=== PATIENT | male | born 1990 | race Caucasian/White ===

== ENCOUNTER 2016-07-19 11:26 | Emergency (ER) | payer OTHER ==
[~2016-07-19] VITALS: Ht 180.3 cm; Wt 110.0 kg
[~2016-07-19 11:26] MED LIST: AMOX875T20 PO; TRAM50 PO
[2016-07-19 11:28] VITALS: BP 135/86; PULSE 92; RESP 16; TEMP 97.7; O2SAT 99
[2016-07-19] MEDS ORDERED: BACT800T5 PO (11:52)
[2016-07-19] MEDS ORDERED: CEPH-460 PO (11:52)
--- NOTE | 2016-07-19 11:57 | PD ---
HPI Chief Complaint: Skin Problem Time Seen by Provider: 11:53 Travel History International Travel<30 days: No Contact w/Intl Traveler<30days: No Traveled to known affect area: No History of Present Illness HPI 26-year-old male that presents to the ED for evaluation of left forearm infection. 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 He states that he initially lost some hairs and it and I didn't think much of it but for the past 2 days his been having redness and swelling coming in the area. Per patient he was concerned for infection. He has no history of MRSA or IV drug abuse. He denies any history of any suppression. Per patient is up-to-date with his tetanus. Per patient the pain is 6-8 out of 10 on that area only with touch. Per patient is warm to touch. He denies putting anything on it. He denies any wound care. Per patient the redness was getting more swelling and more noticeable today which is what prompted his evaluation here today. Nothing seems to make the symptoms better. Touching makes it worse. PFSH Past Medical History Cancer: No Glaucoma: No Hepatitis: No Hiatal Hernia: No Hypertension: No Immunizations Current: Yes Seizures: Yes (WHEN HE WAS BETWEEN 3-8 YEARS OF AGE WHEN THEY OCCURED) Thyroid Disease: No Past Surgical History Abdominal Surgery: No Cardiac Surgery: No Ear Surgery: No Endocrine Surgery: No Eye Surgery: Yes (LEFT LENS TRANSPLANT) Genitourinary Surgery: No Gynecologic Surgery: No Oral Surgery: No Pacemaker: No Thoracic Surgery: No Other Surgery: Yes (NASAL SURGERY) Social History Alcohol Use: No Tobacco Use: Yes (1 PPD) Substance Use: No Allergies-Medications (Allergen,Severity, Reaction): Coded Allergies: No Known Allergies (Unverified , 12/03/12) Reported Meds & Prescriptions Reported Meds & Active Scripts Active Keflex (Cephalexin) 500 Mg Cap 500 Mg PO Q8H 10 Days Bactrim DS (Sulfamethoxazole-Trimethoprim) 800-160 Mg Tab 1 Tab PO BID 10 Days Ultram (Tramadol HCl) 50 Mg Tab 1 Tab PO Q4HPRN FOR PAIN Amoxicillin/Clavulanate P (Amoxicillin/Clavulanate Potassium) 875 Mg Tab 875 Mg PO BID 10 Days Review of Systems General / Constitutional: No: Fever, Chills, Weight Gain, Weight Loss, Other Eyes: No: Diploplia, Blurred Vision, Photophobia, Drainage, Redness, Foreign Body Sensation, Pain, Tearing, Blind Spots, Visual changes, Blindness, Other HENT: No: Headaches, Vertigo, Lightheadedness, Sore Throat, Rhinitis, Rhinorrhea, Congestion, Nosebleed, Neck Stiffness, Neck Pain, Masses, Gingival Bleeding, Dental Difficulties, Ear Discharge, Earache, Other Cardiovascular: No: Chest Pain or Discomfort, Palpitations, Irregular Rhythm, Tachycardia, Diaphoresis, Syncope, Dyspnea on exertion, Varicosities, Edema, Cyanosis, Varicosities, Phlebitis, Claudication, Other Respiratory: No: Cough, Shortness of Breath, Wheezing, Sneezing, Orthopnea, Hemoptysis, Stridor, Night Sweats, Pleuritic Pain, Other Gastrointestinal: No: Nausea, Vomiting, Diarrhea, Abdominal Pain, Hematemesis, Hematochezia, Constipation, Changes in Bowel Habits, Indigestion, Dysphagia, Loss of Appetite, Other Genitourinary: No: Urgency, Frequency, Dysuria, Nocturia, Hematuria, Decreased Urinary Output, Oliguria, Hesitancy, Dribbling, Incontinence, Pelvic Pain, Flank Pain, Dyspareunia, Discharge, Dysmenorrhea, Menorrhagia, Metorrhagia, Vaginal Bleeding, Other Musculoskeletal: No: Myalgias, Arthralgias, Limited ROM, Weakness, Cramping, Edema, Pain, Atrophy, Other Skin: Positive Rash, No Itching, No Dryness, No Lumps, No Hives, No Change in Pigmentation, No Change in nails, No Alopecia, No Lesions, No Breast Lumps, No Breast Tenderness, No Breast Swelling, No Other Neurologic: No: Weakness, Dizziness, Syncope, Focal Abnormalities, Coordination Problem, Tremor, Ataxia, Headache, Change in Mentation, Slurred Speech, Paresthesia, Incontinence, Seizures, Sensory Disturbance, Other Psychiatric: No: Anxiety, Depression, Suicidal Ideations, Disorder of Thought, Mood Disorder, Substance Abuse, Homicidal Ideation, Other Endocrine: No: Heat Intolerance, Cold Intolerance, Polyuria, Polydipsia, Other Hematologic/Lymphatic: No: Easy Bruising, Lymph Node Enlargement, Other Physical Exam Narrative GENERAL: SKIN: Warm and dry. Patient has an area of erythema that is about 1 cm in diameter with some tracking towards the proximal aspect of the elbow. Blanchable but warm. No obvious purulence or mass. Mild induration noted. Full range of motion of the entire extremity. No lymphadenopathy noted. HEAD: Atraumatic. Normocephalic. EYES: Pupils equal and round. No scleral icterus. No injection or drainage. ENT: No nasal bleeding or discharge. Mucous membranes pink and moist. Tongue is midline. No uvula deviation. NECK: Trachea midline. No JVD. CARDIOVASCULAR: Regular rate and rhythm. RESPIRATORY: No accessory muscle use. Clear to auscultation. Breath sounds equal bilaterally. GASTROINTESTINAL: Abdomen soft, non-tender, nondistended. Hepatic and splenic margins not palpable. MUSCULOSKELETAL: Extremities without clubbing, cyanosis, or edema. No obvious deformities. Full range of motion of the upper and lower extremities bilaterally. 2+ pulses bilaterally. NEUROLOGICAL: Awake and alert. No obvious cranial nerve deficits. Motor grossly within normal limits. Five out of 5 muscle strength in the arms and legs. Normal speech. PSYCHIATRIC: Appropriate mood and affect; insight and judgment normal. Data Data Last Documented VS Vital Signs Date Time Temp Pulse Resp B/P Pulse Ox O2 Delivery O2 Flow Rate FiO2 07/19/16 11:28 97.7 92 16 135/86 99 Room Air MDM Medical Decision Making Medical Screen Exam Complete: Yes Emergency Medical Condition: Yes Medical Record Reviewed: Yes Differential Diagnosis Abscesses versus cellulitis versus first degrees burn Narrative Course 26-year-old male that presents to the ED for evaluation of possible infection. Patient was properly examined and was found to have signs and symptoms consistent appears to be left forearm cellulitis. No sign of abscess at this time. At this time I recommend treating with Bactrim and Keflex. Follow with PCP. Motrin or Tylenol for pain. Ice or warm compresses. See ED for any worsening symptoms. Patient is agreeable with plan. Diagnosis Primary Impression: Cellulitis Qualified Code: L03.114 - Cellulitis of left upper extremity Patient Instructions: General Instructions Additional Instructions: Take medications as prescribed. Motrin or Advil as needed for pain. Ice or warm compresses. See ED for any worsening symptoms. Med/Other Pt SpecificInfo: Prescription(s) given Scripts Cephalexin (Keflex)500 Mg [id number] Mg PO Q8H 10 Days Ref 0 Prov:Chandrika Davis MD 07/19/16 Sulfamethoxazole-Trimethoprim (Bactrim DS)800-160 Mg Tab1 Tab PO BID 10 Days Ref 0 Prov:Chandrika Davis MD 07/19/16 Disposition: 01 DISCHARGE HOME Condition: Stable Jak Khan Jul 19, 2016 11:57
== END 2016-07-19 12:28 | disposition home or self-care (01) ==
LOC: NEPB 11:26
DX: L03.114 Cellulitis of left upper limb (principal); X08.8XXA Exposure to other specified smoke, fire and flames, initial encounter; Y93.G3 Activity, cooking and baking; Y92.511 Restaurant or cafe as the place of occurrence of the external cause; Y99.0 Civilian activity done for income or pay; F17.210 Nicotine dependence, cigarettes, uncomplicated
CPT/HCPCS: 99283

== ENCOUNTER 2016-07-20 14:36 | Emergency (ER) | payer OTHER ==
[~2016-07-20] VITALS: Ht 177.8 cm; Wt 109.0 kg
[~2016-07-20 14:36] MED LIST changes: +BACT800T5 PO; +CEPH-460 PO
[2016-07-20 14:38] VITALS: BP 128/78; PULSE 65; RESP 14; TEMP 98; O2SAT 99
[2016-07-20] MEDS ORDERED: LIDOCAINE 1%/EPINEPHrine 1:100,000 SOLN 20 ML VIAL INFIL ONE (15:45)
--- NOTE | 2016-07-20 16:24 | PD ---
HPI Chief Complaint: Skin Problem Time Seen by Provider: 15:35 Travel History International Travel<30 days: No Contact w/Intl Traveler<30days: No Traveled to known affect area: No History of Present Illness HPI 26-year-old male presents to the department with ongoing cellulitis and abscess to the left volar distal forearm. Patient was seen yesterday and placed on antibiotics. Patient states his overall erythema is improved, but the swelling is gotten more pronounced, but no spontaneous drainage is noted. He states the pain is worse today. He has no known drug allergies. PFSH Past Medical History Cancer: No Glaucoma: No Hepatitis: No Hiatal Hernia: No Hypertension: No Immunizations Current: Yes Seizures: Yes (WHEN HE WAS BETWEEN 3-8 YEARS OF AGE WHEN THEY OCCURED) Thyroid Disease: No Past Surgical History Abdominal Surgery: No Cardiac Surgery: No Ear Surgery: No Endocrine Surgery: No Eye Surgery: Yes (LEFT LENS TRANSPLANT) Genitourinary Surgery: No Gynecologic Surgery: No Oral Surgery: No Pacemaker: No Thoracic Surgery: No Other Surgery: Yes (NASAL SURGERY) Social History Alcohol Use: No Tobacco Use: Yes (1 PPD) Substance Use: No Allergies-Medications (Allergen,Severity, Reaction): Coded Allergies: No Known Allergies (Unverified , 07/20/16) Reported Meds & Prescriptions Reported Meds & Active Scripts Active Keflex (Cephalexin) 500 Mg Cap 500 Mg PO Q8H 10 Days Bactrim DS (Sulfamethoxazole-Trimethoprim) 800-160 Mg Tab 1 Tab PO BID 10 Days Review of Systems Except as stated in HPI: all other systems reviewed are Neg General / Constitutional: No: Fever Eyes: No: Visual changes HENT: No: Headaches Cardiovascular: No: Chest Pain or Discomfort Respiratory: No: Shortness of Breath Gastrointestinal: No: Abdominal Pain Genitourinary: No: Dysuria Musculoskeletal: No: Pain Skin: Positive Lesions (see history present illness.), No Rash Neurologic: No: Weakness Psychiatric: No: Depression Endocrine: No: Polydipsia Hematologic/Lymphatic: No: Easy Bruising Physical Exam Narrative GENERAL: Patient is in no acute distress. SKIN: Warm and dry. Normal color. Normal turgor. Patient has an obvious abscess to the left volar distal forearm on the ulnar aspect. There is no spontaneous drainage. Erythema is localized without lymphangitis or streaking. Abscess measures 4 cm x 2 cm. HEAD: Atraumatic. Normocephalic. EYES: Pupils equal and round. No scleral icterus. No injection or drainage. ENT: No nasal bleeding or discharge. Mucous membranes pink and moist. Pharynx is clear. NECK: Trachea midline. No JVD. CARDIOVASCULAR: Regular rate and rhythm. RESPIRATORY: No accessory muscle use. Clear to auscultation. Breath sounds equal bilaterally. MUSCULOSKELETAL: Extremities without clubbing, cyanosis, or edema. No obvious deformities. NEUROLOGICAL: Awake and alert. No obvious cranial nerve deficits. Motor grossly within normal limits. Five out of 5 muscle strength in the arms and legs. Normal speech. PSYCHIATRIC: Appropriate mood and affect; insight and judgment normal. Data Data Last Documented VS Vital Signs Date Time Temp Pulse Resp B/P Pulse Ox O2 Delivery O2 Flow Rate FiO2 07/20/16 14:38 98.0 65 14 128/78 99 Orders Lidocai-Epi 1%-1:100,000 Inj (Xylocaine- (07/20/16 15:45) MDM Medical Decision Making Medical Screen Exam Complete: Yes Emergency Medical Condition: Yes Differential Diagnosis Cellulitis. MRSA. Abscess. Narrative Course Patient is medically stable at time of exam. I&D of abscess is performed on the left arm. See procedure note. Wound culture is pending. Patient is continue the antibiotics as previously prescribed. Patient is to follow-up in 2 days for wound check and packing removal. Dressing should remain in place until that time. Patient can return sooner if symptoms warrant. Procedures Procedure Narrative After the risks and benefits were discussed the following procedure was performed: INCISION AND DRAINAGE OF ABSCESS: The area was prepped and was sterilely draped. A subcutaneous wheal of 1 % Xylocaine with epi with a total number 3 mL was used to anesthetize the area. The area was properly anesthetized. A number 11 scalpel was used to make a 1-cm incision across the area of the abscess. Cultures were obtained. The abscess was drained an irrigated with normal saline. Quarter inch iodoform packing was placed in the wound. Sterile dressing applied. Patient advised to have packing removed in two days. Diagnosis Primary Impression: Abscess of left arm Patient Instructions: Abscess Incision and Drainage (ED), General Instructions Additional Instructions: I&D of abscess is performed on the left arm. Wound culture is pending. Patient is continue the antibiotics as previously prescribed. Patient is to follow-up in 2 days for wound check and packing removal. Dressing should remain in place until that time. Patient can return sooner if symptoms warrant. Med/Other Pt SpecificInfo: No Change to Meds, Wound Care Disposition: 01 DISCHARGE HOME Condition: Stable Berry Kathleen Jul 20, 2016 16:24
== END 2016-07-20 16:45 | disposition home or self-care (01) ==
LOC: NEPB 14:36
DX: L02.414 Cutaneous abscess of left upper limb (principal); B95.61 Methicillin susceptible Staphylococcus aureus infection as the cause of diseases classified elsewhere; F17.200 Nicotine dependence, unspecified, uncomplicated
CPT/HCPCS: 10061; 86403; 87070; 87186

== ENCOUNTER 2016-07-22 12:26 | Emergency (ER) | payer OTHER ==
[~2016-07-22] VITALS: Ht 177.8 cm; Wt 110.0 kg
[~2016-07-22 12:26] MED LIST changes: -AMOX875T20 PO; -TRAM50 PO
[2016-07-22 12:28] VITALS: BP 137/74; PULSE 93; RESP 14; TEMP 98; O2SAT 98
--- NOTE | 2016-07-22 13:58 | PD ---
HPI Chief Complaint: Skin Problem Time Seen by Provider: 13:56 Travel History International Travel<30 days: No Contact w/Intl Traveler<30days: No Traveled to known affect area: No History of Present Illness HPI 26-year-old male presents to the emergency department requesting removal of the packing from his abscess to his left forearm that was placed 2 days ago. He has been taking his antibiotics as prescribed. He is taking Bactrim and Keflex. He has not checked the wound area because he has not change the dressing since the abscess was incised and drained. Denies fever, chills, nausea, vomiting. Denies paresthesias, loss of sensation, decreased range motion, decreased strength to the affected area. Has no other medical complaints. No known allergies. No other modifying factors or associated signs and symptoms. PFSH Past Medical History Cancer: No Glaucoma: No Hepatitis: No Hiatal Hernia: No Hypertension: No Immunizations Current: Yes Seizures: Yes (WHEN HE WAS BETWEEN 3-8 YEARS OF AGE WHEN THEY OCCURED) Thyroid Disease: No Past Surgical History Abdominal Surgery: No Cardiac Surgery: No Ear Surgery: No Endocrine Surgery: No Eye Surgery: Yes (LEFT LENS TRANSPLANT) Genitourinary Surgery: No Gynecologic Surgery: No Oral Surgery: No Pacemaker: No Thoracic Surgery: No Other Surgery: Yes (NASAL SURGERY) Social History Alcohol Use: No Tobacco Use: Yes (1 PPD) Substance Use: No Allergies-Medications (Allergen,Severity, Reaction): Coded Allergies: No Known Allergies (Unverified , 07/22/16) Reported Meds & Prescriptions Reported Meds & Active Scripts Active Keflex (Cephalexin) 500 Mg Cap 500 Mg PO Q8H 10 Days Bactrim DS (Sulfamethoxazole-Trimethoprim) 800-160 Mg Tab 1 Tab PO BID 10 Days Review of Systems Except as stated in HPI: all other systems reviewed are Neg Physical Exam Narrative GENERAL: Well-nourished, well-developed patient, in no acute distress; afebrile , nontoxic-appearing SKIN: There is an indurated area to the anterior left forearm with iodoform packing in place; abscesses status post incision and drainage; packing removed;. Drainage noted. There is a zone of inflammation around it but no lymphangitis. Sterile dressing applied. HEAD: Atraumatic. Normocephalic. EYES: Pupils equal and round. No scleral icterus. No injection or drainage. ENT: Mucosa pink and moist. Airway patent. NECK: Trachea midline. CARDIOVASCULAR: Regular rate. RESPIRATORY: No accessory muscle use. GASTROINTESTINAL: Rounded. MUSCULOSKELETAL: No obvious deformities. No clubbing. No cyanosis. No edema. NEUROLOGICAL: Awake and alert. Oriented 3. No obvious cranial nerve deficits. Motor grossly within normal limits. Normal speech. PSYCHIATRIC: Appropriate mood and affect; insight and judgment normal. Data Data Last Documented VS Vital Signs Date Time Temp Pulse Resp B/P Pulse Ox O2 Delivery O2 Flow Rate FiO2 07/22/16 13:54 18 07/22/16 12:28 98.0 93 137/74 98 Room Air MDM Medical Decision Making Medical Screen Exam Complete: Yes Emergency Medical Condition: Yes Medical Record Reviewed: Yes Differential Diagnosis Wound recheck, abscess packing removal, medical clearance Narrative Course 26-year-old male presents for packing removal of an abscess to his left forearm. Patient is afebrile and nontoxic-appearing. He is taking Keflex and Bactrim as prescribed. Packing removed. Sterile dressing applied. Instructed patient to continue antibiotics until they are gone. Patient verbalizes understanding and agreement with treatment plan. Patient is medically cleared and stable for discharge. Discussed reasons to return to the emergency department. Instructed patient to follow up with primary care provider. Patient agrees with treatment plan. The patients vital signs are stable and the patient is stable for outpatient follow-up and treatment. Patient discharged home, stable and in no acute distress. Diagnosis Primary Impression: Encounter for abscess packing removal Referrals: Primary Care Physician Patient Instructions: Abscess Follow-up (ED), General Instructions Departure Forms: Tests/Procedures, Work Release Enter return to work date: Jul 22, 2016 Additional Instructions: Complete full course of antibiotics Warm compresses to the affected area Keep area clean and dry Ibuprofen or Tylenol as directed 90 for pain and inflammation Follow-up with primary care provider Return to emergency department immediately with worsening of symptoms Med/Other Pt SpecificInfo: No Change to Meds, No Meds Exist/No RX given Disposition: 01 DISCHARGE HOME Condition: Stable Jennifer Lawson Jul 22, 2016 13:58
== END 2016-07-22 14:17 | disposition home or self-care (01) ==
LOC: NETRI 12:26
DX: L02.414 Cutaneous abscess of left upper limb (principal); F17.200 Nicotine dependence, unspecified, uncomplicated
CPT/HCPCS: 99281

== ENCOUNTER 2017-03-21 17:47 | Emergency (ER) | payer OTHER ==
[~2017-03-21] VITALS: Ht 180.3 cm; Wt 109.0 kg
[2017-03-21 17:48] VITALS: BP 149/92; PULSE 83; RESP 12; TEMP 97.9; O2SAT 100
--- NOTE | 2017-03-21 21:28 | PD ---
HPI Chief Complaint: Back/ Neck Pain or Injury Time Seen by Provider: 21:16 Travel History International Travel<30 days: No Contact w/Intl Traveler<30days: No Traveled to known affect area: No History of Present Illness HPI 26-year-old male here for evaluation of lower back pain. The patient reports that the pain started about 3 days ago after coughing all smoking a cigarette. States the pain has been persistent, occasionally radiates down his bilateral legs. States that yesterday he had some numbness in his bilateral feet. Currently no numbness. No urinary or bowel incontinence or retention. No direct trauma. No saddle anesthesia. 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 He denies fevers or chills. No history of IVDU or illicit drug use. PFSH Past Medical History Cancer: No Glaucoma: No Hepatitis: No Hiatal Hernia: No Hypertension: No Immunizations Current: Yes Seizures: Yes (WHEN HE WAS BETWEEN 3-8 YEARS OF AGE WHEN THEY OCCURED) Thyroid Disease: No Past Surgical History Abdominal Surgery: No Cardiac Surgery: No Ear Surgery: No Endocrine Surgery: No Eye Surgery: Yes (LEFT LENS TRANSPLANT) Genitourinary Surgery: No Gynecologic Surgery: No Oral Surgery: No Pacemaker: No Thoracic Surgery: No Other Surgery: Yes (NASAL SURGERY) Social History Alcohol Use: No Tobacco Use: Yes (1 PPD) Substance Use: No Allergies-Medications (Allergen,Severity, Reaction): Coded Allergies: No Known Allergies (Unverified Adverse Reaction, Unknown, 03/21/17) Reported Meds & Prescriptions Reported Meds & Active Scripts Active No Active Prescriptions or Reported Medications Review of Systems Except as stated in HPI: all other systems reviewed are Neg Physical Exam Narrative GENERAL: Well-developed, well-nourished, overweight, sitting comfortably on stretcher, no apparent distress. SKIN: Focused skin assessment warm/dry. No rash. HEAD: Atraumatic. Normocephalic. EYES: Pupils equal and round. No scleral icterus. No injection or drainage. ENT: Mucous membranes pink and moist. NECK: Trachea midline. No JVD. CARDIOVASCULAR: Regular rate and rhythm. Bilateral posterior tibialis pulses are brisk and equal. RESPIRATORY: No accessory muscle use. Clear to auscultation. Breath sounds equal bilaterally. GASTROINTESTINAL: Abdomen soft, non-tender, nondistended. MUSCULOSKELETAL: No obvious deformities. No clubbing. No cyanosis. No edema. Normal range of motion in bilateral lower extremities in flexion and extension with normal strength in flexion and extension at the knee, hip, and ankle joints. Mild midline thoracic spine and lumbar spine tenderness without step- off with moderate paraspinal lower lumbar spine tenderness. No CVA tenderness. NEUROLOGICAL: Awake and alert. No obvious cranial nerve deficits. Motor grossly within normal limits. Normal speech. Great toe extension present bilaterally. Brisk patellar tendon reflexes bilaterally. Normal motor/sensory to bilateral lower extremities. No saddle anesthesia. PSYCHIATRIC: Appropriate mood and affect; insight and judgment normal. Data Data Last Documented VS Vital Signs Date Time Temp Pulse Resp B/P (MAP) Pulse Ox O2 Delivery O2 Flow Rate FiO2 03/21/17 17:48 97.9 83 12 149/92 (111) 100 Orders Orders Spine, Thoracic-Ap/Lat/Sw(3vw) (03/21/17 ) Spine, Lumbar Comp W/Obliq (03/21/17 ) Ketorolac Inj (Toradol Inj) (03/21/17 21:30) Cyclobenzaprine (Flexeril) (03/21/17 21:30) Prednisone (Deltasone) (03/21/17 21:30) MDM Medical Decision Making Medical Screen Exam Complete: Yes Emergency Medical Condition: Yes Differential Diagnosis Low back strain, vertebral injury, herniated disc, spinal stenosis/cord compression unlikely Narrative Course Vital signs show heart rate 83, blood pressure 149/92, pulse ox 100% on room air , oral temp of 97.9F. T-spine x-ray: No acute abnormality. L-spine x-ray: No significant lumbar spine abnormality is identified. The patient was made aware of all findings. He was given a dose of IM Toradol, oral Flexeril, and oral prednisone. He is not displaying any red flags for low back pain. He is stable for discharge home with further workup as an outpatient. I will give her a prescription for prednisone and a muscle relaxant. He was informed on when to return to the emergency department. He verbalizes understanding and agreement with plan. Diagnosis Primary Impression: Back strain Qualified Codes: S39.012A - Strain of muscle, fascia and tendon of lower back , initial encounter Referrals: [facility] 3 days Primary Care Physician 3 days Additional Instructions: Follow-up with a primary care physician this week. Return to the emergency department for worsening symptoms or any other concerns. Scripts Prednisone (Prednisone) 50 Mg Tab 50 MG PO DAILY for 5 Days, #5 TAB 0 Refills Prov: Angel Felton MD 03/21/17 Hydrocodone-Acetaminophen (Hydrocodone-Acetaminophen) 5-325 mg Tab 1 TAB PO Q6H Y for PAIN, #12 TAB 0 Refills Prov: Angel Felton MD 03/21/17 Cyclobenzaprine (Flexeril) 10 Mg Tab 10 MG PO TID for Muscle Spasm, #12 TAB 0 Refills Prov: Angel Felton MD 03/21/17 Disposition: 01 DISCHARGE HOME Condition: Stable Angel Felton MD Mar 21, 2017 21:28
[2017-03-21] MEDS ORDERED: CYCLOBENZAPRINE HCL 10 MG TAB PO ONE (21:30)
[2017-03-21] MEDS ORDERED: KETOROLAC TROMETHAMINE 60 MG/2 ML (IM) VIAL IM ONE (21:30)
[2017-03-21] MEDS ORDERED: predniSONE 50 MG TAB PO ONE (21:30)
--- NOTE | 2017-03-21 22:01 | RADRPT ---
EXAM DATE/TIME: 03/21/2017 21:36 [facility] COMPARISON: No previous studies available for comparison. INDICATIONS : Cough causing back pain. MEDICAL HISTORY : None. SURGICAL HISTORY : None. ENCOUNTER: Initial ACUITY: 3 days PAIN SCORE: 8/10 LOCATION: Lower back FINDINGS: 3 views of the thoracic spine demonstrate no fracture or compression deformity. There is no anterolis thesis or retrolisthesis. Disc heights are preserved. Visualized surrounding structures demonstrate no acute abnormality. CONCLUSION: No acute abnormality is identified. Kenneth Jose MD on March 21, 2017 at 21:59 Board Certified Radiologist. This report was verified electronically.
--- NOTE | 2017-03-21 22:02 | RADRPT ---
EXAM DATE/TIME: 03/21/2017 21:37 [facility] COMPARISON: No previous studies available for comparison. INDICATIONS : Cough causing back pain. MEDICAL HISTORY : None. SURGICAL HISTORY : None. ENCOUNTER: Initial ACUITY: 3 days PAIN SCORE: 8/10 LOCATION: Lower back FINDINGS: 5 views of the lumbar spine demonstrate five [id number] lumbar vertebral bodies. No fracture or compression deformity is present. There is no anterolisthesis or retrolisthesis. No significant arthr opathy is present. The visualized paraspinous soft tissues and pelvic bones demonstrate no acute abnormality. CONCLUSION: No significant lumbar spine abnormality is identified. Kenneth Jose MD on March 21, 2017 at 22:00 Board Certified Radiologist. This report was verified electronically.
[2017-03-21] MEDS ORDERED: PRED50 PO (22:14)
[2017-03-21] MEDS ORDERED: CYCL10TA PO (22:14)
[2017-03-21] MEDS ORDERED: HYDR-3516 PO (22:14)
== END 2017-03-21 22:53 | disposition home or self-care (01) ==
LOC: NEPD 17:47
DX: S39.012A Strain of muscle, fascia and tendon of lower back, initial encounter (principal); F17.210 Nicotine dependence, cigarettes, uncomplicated; X58.XXXA Exposure to other specified factors, initial encounter
CPT/HCPCS: 72072; 72110; 96372; 99284; J1885; J7512